=== PATIENT | male | born 1995 | race Caucasian/White ===

== ENCOUNTER 2018-03-02 13:54 | Outpatient (CLI) | payer BC ==
--- NOTE | 2018-03-02 16:17 | ULT ---
TESTICULAR ULTRASOUND: 03/02/18 PROVIDED CLINICAL HISTORY: Cyst. FINDINGS: No comparisons. Right testicle measures about 5.1 x 2.3 x 2.8 cm and demonstrates a normal velázquez scale sonographic romelia earance. The right epididymis demonstrates a 1 cm simple appearing cyst. Left testicle measures about 5.2 x 2.3 x 3.1 cm and demonstrates a normal velázquez scale sonographic appe arance. The left epididymis demonstrates a tiny approximately 3 mm simple cyst. Color doppler and spectral analysis of the testicular waveforms is normal bilaterally. IMPRESSION: Small benign epididymal head cysts bilaterally. POS: MIC
== END 2018-03-02 13:55 | disposition home or self-care (01) ==
LOC: BICULT 13:54
PROVIDERS: ATTEND Family Medicine
DX: N44.2 Benign cyst of testis (principal); N50.3 Cyst of epididymis
CPT/HCPCS: 76870; 93976